=== PATIENT | male | born 1930 | race African-American/Black ===

== ENCOUNTER 2017-07-08 14:58 | Inpatient (IN) | payer OTHER ==
[~2017-07-08] VITALS: Ht 180.3 cm; Wt 84.1 kg
[2017-07-08 14:58] VITALS: Ht 180.3 cm; Wt 84.1 kg
[2017-07-08] MEDS ORDERED: SOD CHLORIDE 0.9% 500 ML IV STA (15:25)
[2017-07-08] MEDS ORDERED: ASPIRIN 81 MG TAB PO ONE (15:30)
[2017-07-08] MEDS ORDERED: TAMS0.4C2 PO (15:59)
[2017-07-08] MEDS ORDERED: ISOS30TA5 PO (16:00)
[2017-07-08 16:01] LABS: ABNORMAL IP MESSAGE 1; HEMATOCRIT 38.8 % (42.0-52.0); HEMOGLOBIN 13.2 g/dl (14.0-18.0); MEAN CORPUSCULAR HEMOGLOBIN 29.5 pg (29.0-33.0); MEAN CORPUSCULAR VOLUME 86.6 fl (82.0-101.0); MEAN PLATELET VOLUME 10.2 fl (7.4-10.4); PLATELET COUNT 144 10^3/UL (140-415); POSITIVE DIFF @See below; RED BLOOD COUNT 4.48 10^6/ul (4.70-6.10); RED CELL DISTRIBUTION WIDTH 15.4 % (11.5-14.5); WHITE BLOOD COUNT 17.3 10^3/ul (4.8-10.8)
[2017-07-08] MEDS ORDERED: AMLO2.5T78 PO (16:02)
[2017-07-08] MEDS ORDERED: LOSA100T7 PO (16:03)
[2017-07-08] MEDS ORDERED: DOXA2TAB PO (16:04)
[2017-07-08] MEDS ORDERED: PRAV80TA27 PO (16:04)
[2017-07-08] MEDS ORDERED: ASPI-664 PO (16:05)
[2017-07-08] MEDS ORDERED: SILO8CAP PO (16:09)
[2017-07-08 16:28] LABS: INR 1.04; PROTIME 13.6 Sec (12.2-14.2); PT RATIO 1.1
[2017-07-08 16:58] LABS: LYMPHOCYTES # 0.2 10^3/ul (0.8-2.9); METAMYELOCYTES %M 1 % (0-0); MONOCYTE # 0.3 10^3/ul (0.3-0.9); MONOCYTES % (M) 2 % (0-11)
--- NOTE | 2017-07-08 16:59 | RADRPT ---
PROCEDURE: XR Chest. CLINICAL INDICATION: Shortness of breath. TECHNIQUE: Single frontal view. COMPARISON: None. FINDINGS: There is a possible 0.5 cm nodule in the right lung apex. The lungs are otherwise clear. The heart is enlarged. There is calcification in the aorta consistent with atherosclerosis. There is no pleural effusion. There is no pneumothorax. IMPRESSION: 1. Cardiomegaly and atherosclerosis. 2. Possible nodule in the right lung apex. Correlation with CT scan should be considered. 3. Otherwise unremarkable study. RPTAT: QQ .Bravo Oviedo MD, MD Date Time Electronically viewed and signed by .Bravo Oviedo MD, MD on 07/08/2017 16:59 .R/
[2017-07-08 17:02] LABS: ALBUMIN 3.1 g/dl (3.3-4.9); ALBUMIN/GLOBULIN RATIO 0.86; BILIRUBIN,INDIRECT 0.8 mg/dl (0-1.1); BILIRUBIN,TOTAL 0.8 mg/dl (0.2-1.3); CALCIUM 8.6 mg/dl (8.4-10.2); CREATININE 2.18 mg/dl (0.61-1.24); POTASSIUM 3.8 mmol/L (3.5-5.1); TOTAL PROTEIN 6.7 g/dl (6.1-8.1)
[2017-07-08 18:51] LABS: TROPONIN-I 34.8 ng/ml (0.00-0.12)
[2017-07-08] MEDS ORDERED: ONDANSETRON 4 MG INJ IV PRN (19:30)
[2017-07-08] MEDS ORDERED: HYDROCODONE/APAP (5/325) TAB PO PRN (19:30)
[2017-07-08] MEDS ORDERED: ENOXAPARIN 100 MG/ML SYG SC SCH (19:30)
[2017-07-08] MEDS ORDERED: ONDANSETRON 4 MG TAB PO PRN (19:30)
[2017-07-08] MEDS ORDERED: CLOPIDOGREL 75 MG TAB PO ONE (19:30)
[2017-07-08] MEDS ORDERED: METOCLOPRAMIDE 10 MG INJ IV PRN (19:30)
[2017-07-08] MEDS ORDERED: ACETAMINOPHEN 650MG/20.3ML CUP PO PRN (19:30)
[2017-07-08 19:47] LABS: CHOL/HDL RATIO 2.6 RATIO
[2017-07-08] MEDS ORDERED: ATORVASTATIN 20 MG TAB PO SCH (21:00)
[2017-07-08] MEDS ORDERED: TAMSULOSIN HCL PO SCH (21:00)
[2017-07-08 21:29] VITALS: TEMP 98
[2017-07-08] MEDS: DOXAZOSIN 2 MG TAB PO SCH (22:09)
[2017-07-08] MEDS: ISOSORBIDE MONONITRATE(SR)30 MG TAB PO SCH (22:10)
--- NOTE | 2017-07-08 22:38 | ERA ---
ER Documentation Chief Complaint Date/Time DATE: 07/08/17 TIME: 22:27 Chief Complaint cough and sob starting this morning; no complaint of cp HPI 89-year-old man with history of hypertension presents short of breath beginning this morning when he woke up. He denies chest pain or palpitations, no recent travel, no fevers or chills, no vomiting or diarrhea. Patient denies dizziness or generalized weakness but states he feels short of breath at rest and when he attempts to walk around the house. states a week ago he had similar symptoms which lasted for part of the day and then resolve spontaneously. He has no history of irregular heartbeat. ROS All systems reviewed and are negative except as per history of present illness. Medications Home Meds Reported Medications Silodosin (Rapaflo) 8 Mg Capsule, 8 MG PO DAILY, CAP 07/08/17 Aspirin* (Aspirin* EC) 81 Mg Tablet.dr, 81 MG PO DAILY, TAB 07/08/17 Doxazosin Mesylate* (Doxazosin Mesylate*) 2 Mg Tablet, 1 MG PO HS, TAB 07/08/17 Pravastatin Sodium* (Pravastatin Sodium*) 80 Mg Tablet, 80 MG PO HS, TAB 07/08/17 Losartan Potassium* (Losartan Potassium*) 100 Mg Tablet, 100 MG PO DAILY, TAB 07/08/17 Amlodipine Besylate* (Amlodipine Besylate*) 2.5 Mg Tablet, 2.5 MG PO QAM, #30 TAB 07/08/17 Isosorbide Mononitrate* (Isosorbide Mononitrate*) 30 Mg Tab.er.24h, 30 MG PO BID , TAB 07/08/17 Tamsulosin Hcl* (Tamsulosin Hcl*) Unknown Strength Cap.er.24h, 1 TAB PO HS, CAP 07/08/17 Allergies Allergies: Coded Allergies: No Known Allergy (Unverified , 07/08/17) PMhx/Soc Hypertension, prostate carcinoma, prediabetes Medical and Surgical Hx: pt denies Surgical Hx History of Surgery: No Anesthesia Reaction: No Hx Neurological Disorder: No Hx Respiratory Disorders: No Hx Cardiac Disorders: Yes (htn, cholesterol) Hx Psychiatric Problems: No Hx Miscellaneous Medical Probl: Yes (prostate) Hx Alcohol Use: No Hx Substance Use: No Smoking Status: Former smoker FmHx Family History: No diabetes Physical Exam Vitals Vital Signs Date Time Temp Pulse Resp B/P Pulse Ox O2 Delivery O2 Flow Rate FiO2 07/08/17 21:29 98.0 67 18 119/70 Room Air 07/08/17 19:29 98.4 77 20 117/74 100 Nasal Cannula 2.0 07/08/17 15:56 Nasal Cannula 2.0 07/08/17 15:15 77 20 114/75 100 Nasal Cannula 2.0 07/08/17 14:58 98.2 95 20 95/59 96 Physical Exam GENERAL: Well-developed, well-nourished, well-hydrated, in no apparent distress , looks nontoxic in appearance HEENT: Moist mucous membranes, pink conjunctiva, no cervical spine tenderness or step-off deformities, no goiter, no jaundice or icterus, extraocular movements intact without pain. No submandibular induration, and no pharyngeal erythema NEURO: Alert and oriented 3, cranial nerves II through XII intact bilaterally, pupils equal round reactive to light, no focal deficits or facial asymmetry, sensation intact distally Strength 5/5 in upper and lower extremities bilaterally CARDIAC: Irregular pulse, no murmurs rubs or gallop LUNGS: Clear bilaterally no wheezing crackles or stridor ABDOMEN: Soft nontender, no guarding, no rigidity, no rebound, no psoas sign no obturator sign. Normoactive bowel sounds SKIN: Warm and dry to touch, no abrasions, contusions, or hematomas, no lacerations, no ecchymosis, no target lesions, and without ulcers EXTREMITIES: No clubbing cyanosis or edema, calves are bilaterally symmetrical, no Homans sign, no popliteal cord sign. Distal pulses equal and bilateral PSYCH: Normal affect without agitation or irritability Result Diagram: 07/08/17 1555 07/08/17 1756 Results 24 hrs Laboratory Tests Test 07/08/17 15:55 07/08/17 17:59 07/08/17 18:00 White Blood Count 17.310^3/ul Red Blood Count 4.4810^6/ul Hemoglobin 13.2g/dl Hematocrit 38.8% Mean Corpuscular Volume 86.6fl Mean Corpuscular Hemoglobin 29.5pg Mean Corpuscular Hemoglobin Concent 34.0g/dl Red Cell Distribution Width 15.4% Platelet Count 90859^3/UL Mean Platelet Volume 10.2fl Neutrophils % % Segmented Neutrophils % (Manual) 68% Band Neutrophils % (Manual) 28% Lymphocytes % % Lymphocytes % (Manual) 1% Monocytes % % Monocytes % (Manual) 2% Eosinophils % % Basophils % % Metamyelocytes % (manual) 1% Nucleated Red Blood Cells % 0.0/100WBC Neutrophils # (Manual) 12.610^3/ul Band Neutrophils # 4.810^3/ul Absolute Lymphocytes (Manual) 0.110^3/ul Lymphocytes # 0.210^3/ul Monocytes # 0.310^3/ul Absolute Monocytes (Manual) 0.310^3/ul Eosinophils # 10^3/ul Basophils # 10^3/ul Metamyelocytes # 0.110^3/ul Nucleated Red Blood Cells # 10^3/ul Prothrombin Time 13.6Sec Prothrombin Time Ratio 1.1 INR International Normalized Ratio 1.04 Sodium Level 136mmol/L Potassium Level 3.8mmol/L Chloride Level 104mmol/L Carbon Dioxide Level 17mmol/L Anion Gap 19 Blood Urea Nitrogen 22mg/dl Creatinine 2.18mg/dl Glucose Level 123mg/dl Calcium Level 8.6mg/dl Total Bilirubin 0.8mg/dl Direct Bilirubin 0.00mg/dl Indirect Bilirubin 0.8mg/dl Aspartate Amino Transf (AST/SGOT) 125IU/L Alanine Aminotransferase (ALT/SGPT) 33IU/L Alkaline Phosphatase 93IU/L Troponin I 34.800ng/ml Total Protein 6.7g/dl Albumin 3.1g/dl Globulin 3.60g/dl Albumin/Globulin Ratio 0.86 Lipase 27U/L Hemoglobin A1c 6.4% Triglycerides Level 102mg/dl Cholesterol Level 185mg/dl LDL Cholesterol, Calculated 95mg/dl HDL Cholesterol 70mg/dl Cholesterol/HDL Ratio 2.6RATIO Current Medications Medications (Trade) Dose Ordered Sig/Giacomo Route PRN Reason Start Time Stop Time Status Last Admin Dose Admin Sodium Chloride (NS) 500 ml @ 500 mls/hr Q1H STAT IV 07/08/17 15:25 07/08/17 16:24 DC 07/08/17 15:25 Aspirin (Aspirin) 324 mg ONCE ONCE PO 07/08/17 15:30 07/08/17 15:31 DC 07/08/17 15:30 Clopidogrel Bisulfate (plaVIX) 300 mg ONCE ONCE PO 07/08/17 19:30 07/08/17 19:31 DC 07/08/17 19:19 Enoxaparin Sodium (Lovenox) 84 mg ONCE SC 07/08/17 19:30 07/08/17 20:00 DC 07/08/17 19:49 Ondansetron HCl (Zofran Tab) 4 mg Q6H PRN PO NAUSEA AND/OR VOMITING 07/08/17 19:30 UNV Ondansetron HCl (Zofran Inj) 4 mg Q6H PRN IV NAUSEA AND/OR VOMITING 07/08/17 19:30 Metoclopramide HCl (Reglan) 10 mg Q6H PRN IV NAUSEA AND/OR VOMITING 07/08/17 19:30 Acetaminophen (Tylenol Liquid) 650 mg Q6H PRN PO PAIN LEVEL 1-3 OR FEVER 07/08/17 19:30 Acetaminophen/ Hydrocodone Bitart ([place] (5/325)) 1 tab Q6H PRN PO PAIN LEVEL 4-6 07/08/17 19:30 Amlodipine Besylate (Norvasc) 2.5 mg QAM PO 07/09/17 09:00 UNV Aspirin (Halfprin) 81 mg DAILY PO 07/09/17 09:00 UNV Doxazosin Mesylate (Cardura) 1 mg HS PO 07/08/17 21:00 07/08/17 22:09 Isosorbide Mononitrate (Imdur) 30 mg BID PO 07/08/17 21:00 07/08/17 22:10 Losartan Potassium (Cozaar) 100 mg DAILY PO 07/09/17 09:00 UNV Atorvastatin Calcium (Lipitor) 20 mg DAILY@21 PO 07/08/17 21:00 07/08/17 22:10 Miscellaneous Information 8 mg DAILY PO 07/09/17 09:00 UNV Miscellaneous Information 1 tab HS PO 07/08/17 21:00 UNV Procedures/MDM IV line was established patient was placed on flower pot press operator rhythm strip revealed a narrow complex irregular rhythm at about 80 bpm. Patient was afebrile. I administered 500 cc normal saline intravenously and aspirin 324 mg p.o. for cardio protective measures. EKG #1 performed, read by me revealed an atrial fibrillation rate controlled at 88 bpm, normal axis, narrow QRS complex, no concerning ST elevations or depressions noted. One AP view of the chest performed, read by me reveals no acute infiltrates, normal mediastinum, sharp costophrenic and cardiac borders, no air under the diaphragm. Otherwise unremarkable chest x-ray. CBC revealed a leukocytosis of 17, electrolytes revealed dehydration and acute kidney injury with a BUN/creatinine of 22/2.2, liver function tests were normal. Troponin result was delayed but for new onset symptomatic atrial fibrillation I recommended admission and transfer to his [facility]. The accepting physician agreed verbally but plan was to wait for troponin level. Troponin was positive at 34. Transfer was canceled and authorization was given to admit here. Patient continues to deny and has had no complaints of chest pain or pressure. EKG #2 performed, read by me reveals an atrial fibrillation rate controlled at 83 bpm, normal axis, narrow QRS complex, no concerning ST elevations or depressions noted. I ordered clopidogrel 300 mg p.o. for cardioprotective measures. I obtain emergent consultation with on-call piano stringer who recommended Lovenox subcutaneous injection. He agreed to consult the patient, at this time we have no indication for emergent PCI. Cardiac Critical Care: Time: 37 minutes, this was time separate from other billable procedures Treatments/Evaluations: Close monitoring for dangerous arrhythmia and cardiovascular collapse, while treating with advance cardiac medications and techniques. Patient will be admitted to intensive care unit for continued medical management cardiology consultation. Departure Diagnosis: Primary Impression: Non-STEMI (non-ST elevated myocardial infarction) Additional Impressions: Shortness of breath Leukocytosis Qualified Code: D72.820 - Lymphocytosis Atrial fibrillation, new onset Acute kidney injury Condition: Serious NELLY KO MD Jul 08, 2017 22:38
--- NOTE | 2017-07-08 23:26 | HP ---
Date/Time of Note Date/Time of Note DATE: 07/08/17 TIME: 23:26 Assessment/Plan VTE Prophylaxis VTE Prophylaxis Intervention: heparin Assessment/Plan Assessment/Plan IMPRESSION: 1. Fyr-SL-[id number] myocardial infarction with peaking troponins at this time and downtrending CK-MB in the setting of worsening [id number] renal failure, and no current chest pain. 2. Atrial fibrillation. 3. Episodes of bradycardia. 4. Hypertension. 5. Renal failure, acute on chronic. 6. Dyslipidemia. 7. Anemia. 8. Thrombocytopenia. 9. Leukocytosis. RECOMMENDATIONS: HPI/ROS Admit Date/Time Admit Date/Time 07/08/17 Hx of Present Illness Mr. Martinez is a pleasant 89-year- old male with history of hypertension, BPH, chronic kidney disease, dyslipidemia, former tobacco and said he quit times greater than 30 years, who initially awoke with complaints of shortness of breath. Denied chest pain. The patient states that he had been noticing dyspnea on exertion for multiple weeks. ROS 12 point review if systems was done and pertinent findings are as noted. PMH/Family/Social Social History Smoking Status: Former smoker Exam/Review of Systems Vital Signs Vitals VS - Last 72 Hours, by Label Date Time Temp Pulse Resp B/P Pulse Ox O2 Delivery O2 Flow Rate FiO2 07/08/17 23:14 62 16 135/62 99 Nasal Cannula 2.0 07/08/17 21:29 98.0 67 18 119/70 Room Air 07/08/17 19:29 98.4 77 20 117/74 100 Nasal Cannula 2.0 07/08/17 15:56 Nasal Cannula 2.0 07/08/17 15:15 77 20 114/75 100 Nasal Cannula 2.0 07/08/17 14:58 98.2 95 20 95/59 96 Vital Signs Date Time Temp Pulse Resp B/P Pulse Ox O2 Delivery O2 Flow Rate FiO2 07/08/17 23:14 62 16 135/62 99 Nasal Cannula 2.0 07/08/17 21:29 98.0 Exam Exam .GENERAL: Patient is alert, oriented x 3, in no apparent distress; does not appear acutely or chronically ill. Patient was sleeping comfortably but aroused easily and is able to follow commands. HEENT: Oropharynx is clear. There is no carotid bruit, no masses. Patient's pupils are equal, round and reactive to light bilaterally. Extraocular motions are intact. There is no scleral icterus. There is no facial asymmetry. NECK: Supple. LUNGS: Clear to auscultation bilaterally with good air entry. No Wheezes or crackles. HEART: S1, S2. No murmur, gallops or rubs. Regular rate and rhythm. ABDOMEN: Soft, nontender. Normoactive bowel sounds. There are no stigmata of chronic liver disease. BACK: no costovertebral angle tenderness. GENITOURINARY: Deferred. EXTREMITIES: No edema. There is no cyanosis, clubbing. There are 2+ pulses bilaterally distally. NEUROLOGIC: The patient has no lateralizing signs. Cranial nerves II-XII are intact. SKIN: Otherwise, unremarkable. Labs Result Diagram: 07/08/17 9058 07/08/17 5822 Medications Medications Current Medications Ondansetron HCl (Zofran Tab) 4 mg Q6H PRN PO NAUSEA AND/OR VOMITING; Start at 19:30; Status UNV Ondansetron HCl (Zofran Inj) 4 mg Q6H PRN IV NAUSEA AND/OR VOMITING; Start at 19:30 Metoclopramide HCl (Reglan) 10 mg Q6H PRN IV NAUSEA AND/OR VOMITING; Start at 19:30 Acetaminophen (Tylenol Liquid) 650 mg Q6H PRN PO PAIN LEVEL 1-3 OR FEVER; Start 07/08/17 at 19:30 Acetaminophen/ Hydrocodone Bitart ([place] (5/325)) 1 tab Q6H PRN PO PAIN LEVEL 4 -6; Start 07/08/17 at 19:30 Amlodipine Besylate (Norvasc) 2.5 mg QAM PO ; Start 07/09/17 at 09:00; Status UNV Aspirin (Halfprin) 81 mg DAILY PO ; Start 07/09/17 at 09:00; Status UNV Doxazosin Mesylate (Cardura) 1 mg HS PO Last administered on 07/08/17 22:09; Admin Dose 1 MG; Start 07/08/17 at 21:00 Isosorbide Mononitrate (Imdur) 30 mg BID PO Last administered on 07/08/17 22: 10; Admin Dose 30 MG; Start 07/08/17 at 21:00 Losartan Potassium (Cozaar) 100 mg DAILY PO ; Start 07/09/17 at 09:00; Status UNV Atorvastatin Calcium (Lipitor) 20 mg DAILY@21 PO Last administered on t 22:10; Admin Dose 20 MG; Start 07/08/17 at 21:00 Miscellaneous Information 8 mg DAILY PO ; Start 07/09/17 at 09:00; Status UNV Miscellaneous Information 1 tab HS PO ; Start 07/08/17 at 21:00; Status UNV Procedures Procedures Laboratory Tests Test 07/08/17 15:55 07/08/17 17:59 07/08/17 18:00 White Blood Count 17.310^3/ul Red Blood Count 4.4810^6/ul Hemoglobin 13.2g/dl Hematocrit 38.8% Mean Corpuscular Volume 86.6fl Mean Corpuscular Hemoglobin 29.5pg Mean Corpuscular Hemoglobin Concent 34.0g/dl Red Cell Distribution Width 15.4% Platelet Count 73036^3/UL Mean Platelet Volume 10.2fl Neutrophils % % Segmented Neutrophils % (Manual) 68% Band Neutrophils % (Manual) 28% Lymphocytes % % Lymphocytes % (Manual) 1% Monocytes % % Monocytes % (Manual) 2% Eosinophils % % Basophils % % Metamyelocytes % (manual) 1% Nucleated Red Blood Cells % 0.0/100WBC Neutrophils # (Manual) 12.610^3/ul Band Neutrophils # 4.810^3/ul Absolute Lymphocytes (Manual) 0.110^3/ul Lymphocytes # 0.210^3/ul Monocytes # 0.310^3/ul Absolute Monocytes (Manual) 0.310^3/ul Eosinophils # 10^3/ul Basophils # 10^3/ul Metamyelocytes # 0.110^3/ul Nucleated Red Blood Cells # 10^3/ul Prothrombin Time 13.6Sec Prothrombin Time Ratio 1.1 INR International Normalized Ratio 1.04 Sodium Level 136mmol/L Potassium Level 3.8mmol/L Chloride Level 104mmol/L Carbon Dioxide Level 17mmol/L Anion Gap 19 Blood Urea Nitrogen 22mg/dl Creatinine 2.18mg/dl Glucose Level 123mg/dl Calcium Level 8.6mg/dl Total Bilirubin 0.8mg/dl Direct Bilirubin 0.00mg/dl Indirect Bilirubin 0.8mg/dl Aspartate Amino Transf (AST/SGOT) 125IU/L Alanine Aminotransferase (ALT/SGPT) 33IU/L Alkaline Phosphatase 93IU/L Troponin I 34.800ng/ml Total Protein 6.7g/dl Albumin 3.1g/dl Globulin 3.60g/dl Albumin/Globulin Ratio 0.86 Lipase 27U/L Hemoglobin A1c 6.4% Triglycerides Level 102mg/dl Cholesterol Level 185mg/dl LDL Cholesterol, Calculated 95mg/dl HDL Cholesterol 70mg/dl Cholesterol/HDL Ratio 2.6RATIO Current Medications Medications (Trade) Dose Ordered Sig/Giacomo Route PRN Reason Start Time Stop Time Status Last Admin Dose Admin Sodium Chloride (NS) 500 ml @ 500 mls/hr Q1H STAT IV 07/08/17 15:25 07/08/17 16:24 DC 07/08/17 15:25 500 MLS/HR Aspirin (Aspirin) 324 mg ONCE ONCE PO 07/08/17 15:30 07/08/17 15:31 DC 07/08/17 15:30 324 MG Clopidogrel Bisulfate (plaVIX) 300 mg ONCE ONCE PO 07/08/17 19:30 07/08/17 19:31 DC 07/08/17 19:19 300 MG Enoxaparin Sodium (Lovenox) 84 mg ONCE SC 07/08/17 19:30 07/08/17 20:00 DC 07/08/17 19:49 84 MG Ondansetron HCl (Zofran Tab) 4 mg Q6H PRN PO NAUSEA AND/OR VOMITING 07/08/17 19:30 UNV Ondansetron HCl (Zofran Inj) 4 mg Q6H PRN IV NAUSEA AND/OR VOMITING 07/08/17 19:30 Metoclopramide HCl (Reglan) 10 mg Q6H PRN IV NAUSEA AND/OR VOMITING 07/08/17 19:30 Acetaminophen (Tylenol Liquid) 650 mg Q6H PRN PO PAIN LEVEL 1-3 OR FEVER 07/08/17 19:30 Acetaminophen/ Hydrocodone Bitart ([place]p (5/325)) 1 tab Q6H PRN PO PAIN LEVEL 4-6 07/08/17 19:30 Amlodipine Besylate (Norvasc) 2.5 mg QAM PO 07/09/17 09:00 UNV Aspirin (Halfprin) 81 mg DAILY PO 07/09/17 09:00 UNV Doxazosin Mesylate (Cardura) 1 mg HS PO 07/08/17 21:00 07/08/17 22:09 1 MG Isosorbide Mononitrate (Imdur) 30 mg BID PO 07/08/17 21:00 07/08/17 22:10 30 MG Losartan Potassium (Cozaar) 100 mg DAILY PO 07/09/17 09:00 UNV Atorvastatin Calcium (Lipitor) 20 mg DAILY@21 PO 07/08/17 21:00 07/08/17 22:10 20 MG Miscellaneous Information 8 mg DAILY PO 07/09/17 09:00 UNV Miscellaneous Information 1 tab HS PO 07/08/17 21:00 UNV MICHAEL SHEIKH Jul 08, 2017 23:26
[2017-07-08] MEDS ORDERED: HEPARIN 1000 UNITS/ML 10 ML INJ IV PRN (23:30)
[2017-07-08] MEDS ORDERED: HEPARIN 25000 UNITS/250 ML 250 ML IV SCH (23:30)
[2017-07-09] VITALS (23 sets, daily range): BP systolic 98–148; BP diastolic 49–95; PULSE 41–82; RESP 13–25
[2017-07-09] MEDS: SOD CHLORIDE 0.9% 1,000 ML IV SCH ×3 (00:37→14:16)
[2017-07-09 00:44] LABS: TROPONIN-I 43.7 ng/ml (0.00-0.12)
[2017-07-09 06:55] LABS: BASOPHIL # 0.1 10^3/ul (0.0-0.1); BASOPHILS % 0.3 % (0.0-2.0); EOSINOPHILS % 0.1 % (0.0-7.0); HEMOGLOBIN 11.6 g/dl (14.0-18.0); LYMPHOCYTES # 1.7 10^3/ul (0.8-2.9); LYMPHOCYTES % 8.9 % (15.0-51.0); MEAN CORPUSCULAR HEMOGLOBIN 29.1 pg (29.0-33.0); MEAN CORPUSCULAR HGB CONC 34.1 g/dl (32.0-37.0); MEAN CORPUSCULAR VOLUME 85.2 fl (82.0-101.0); MEAN PLATELET VOLUME 11.3 fl (7.4-10.4); MONOCYTES % 5.1 % (0.0-11.0); NEUTROPHILS % 82.3 % (39.0-77.0); PLATELET COUNT 131 10^3/UL (140-415); POSITIVE DIFF @See below; RED BLOOD COUNT 3.99 10^6/ul (4.70-6.10); RED CELL DISTRIBUTION WIDTH 15.5 % (11.5-14.5); WHITE BLOOD COUNT 19.3 10^3/ul (4.8-10.8)
[2017-07-09 07:07] LABS: INR 1.29; PROTIME 16.2 Sec (12.2-14.2); PT RATIO 1.3
[2017-07-09 07:08] LABS: PARTIAL THROMBOPLASTIN TIME 46.9 Sec (25.0-35.0)
[2017-07-09 07:47] LABS: CALCIUM 8.3 mg/dl (8.4-10.2); CHOL/HDL RATIO 2.3 RATIO; CREATININE 2.41 mg/dl (0.61-1.24); MAGNESIUM 1.7 mg/dl (1.7-2.5); PHOSPHORUS 3.6 mg/dl (2.5-4.9); POTASSIUM 4.2 mmol/L (3.5-5.1); TROPONIN-I 44.7 ng/ml (0.00-0.12)
[2017-07-09] MEDS ORDERED: HEPARIN 1000 UNITS/ML 10 ML INJ IV PRN (09:00)
[2017-07-09] MEDS: ISOSORBIDE MONONITRATE(SR)30 MG TAB PO SCH (09:00)
[2017-07-09] MEDS ORDERED: LOSARTAN 50 MG TAB PO SCH (09:00)
[2017-07-09] MEDS ORDERED: HEPARIN 25000 UNITS/250 ML 250 ML IV SCH (09:00)
--- NOTE | 2017-07-09 11:06 | CONS ---
DATE OF ADMISSION: 07/08/2017 DATE OF CONSULTATION: 07/09/2017 REASON FOR CONSULTATION: Obp-SX-[id number] myocardial infarction. REFERRING PHYSICIAN: Dr. Patel from the hospitalist service. HISTORY OF PRESENT ILLNESS: Mr. Martinez is a pleasant 89-year- old male with history of hypertension, BPH, chronic kidney disease, dyslipidemia, former tobacco and said he quit times greater than 30 years, who initially awoke with complaints of shortness of breath. Denied chest pain. The patient states that he had been noticing dyspnea on exertion for multiple weeks. The patient subsequently presented to the emergency department here at [facility], and upon arrival, temperature 98.2, blood pressure 95/59, pulse 95, respiratory rate 20, satting 96 percent. Patient's labs revealed a sodium of 136, potassium 3.8, creatinine 2.1, BUN 22. Troponin 34.8. AST 125, ALT 33. LDL 95, HDL 70. Lipase 27. INR 1.0. The patient underwent a chest x-ray, revealed cardiomegaly, atherosclerosis, possible nodules in the right lung apex. Patient's electrocardiogram revealed atrial fibrillation at a rate of 88 with normal axis, intervals, and lateral ST depressions, anteroseptal Q's; in addition, the patient had inferior Q's. The patient subsequently treated with aspirin, Plavix load of 300 and Lovenox 84 mg subcu x1. The patient, thereafter, has been admitted to the ICU, and since admitted to the ICU, patient denies chest pain, and states shortness of breath has improved. Patient's troponin did trend up to 34.8, went to 42.7 and then 44.7 this morning, with CK-MB that went from 141, down to 121. Patient's creatinine has worsened from 2.18 to 2.41. PAST MEDICAL HISTORY: As above in HPI. MEDICATION: Currently in the hospital: 1. Flomax 0.4 mg daily. 2. Norvasc 2.5 mg daily. 3. Aspirin 81 mg daily. 4. Cardura 1 mg at bedtime. 5. Imdur 30 mg daily. 6. Atorvastatin 20 mg daily. 7. Zofran p.r.n. 8. Reglan p.r.n. 9. Tylenol p.r.n. 10. [place] p.r.n. ALLERGIES: NO KNOWN DRUG ALLERGIES. SOCIAL HISTORY: Former tobacco, quit x30 years. Rare EtOH. No illicit drug use. FAMILY HISTORY: No history of sudden cardiac or early CAD. REVIEW OF SYSTEMS: As above in HPI. CONSTITUTIONAL: No fevers, chills. RESPIRATORY: Shortness of breath. Currently improved. GASTROINTESTINAL: No vomiting. GENITOURINARY: No hematuria. MUSCULOSKELETAL: Degenerative joint disease. GENITOURINARY: Additionally, BPH. CARDIOVASCULAR: NSTEMI. PHYSICAL EXAMINATION: VITAL SIGNS: Temperature of 97.5, blood pressure 109/55, pulse 52, respiratory rate 20, satting 99 percent on 2 L. GENERAL: The patient is alert, awake, no acute distress. NECK: JVP approximately 9 cm of water. CHEST: Fair air movement throughout, mildly decreased breath sounds at the bases bilaterally. HEART: Bradycardic, regular rhythm. Normal S1, S2. 1/6 systolic murmur. Nondisplaced PMI. ABDOMEN: Positive bowel sounds. Soft. EXTREMITIES: No pitting edema. 1+ pulses, bilateral posterior tibial. LABORATORY: Most recently from today: Sodium of 146, potassium 4.2, creatinine 2.41, BUN of 29. Hemoglobin A1c of 6.4. Troponin 44.7, CK-MB 121, down from 141. LDL of 76, HDL of 69. White blood cell count 19.3, hemoglobin 11.6, platelet count of 131. IMAGING STUDIES: 1. Chest x-ray from the th revealing cardiomegaly and atherosclerosis, possible nodules in the right lung apex. 2. ECG from this morning reveals atrial fibrillation at a rate of 51 with anterior and lateral T-wave inversions. IMPRESSION: 1. Vqm-TY-[id number] myocardial infarction with peaking troponins at this time and downtrending CK-MB in the setting of worsening [id number]-gh-[id number] renal failure, and no current chest pain. 2. Atrial fibrillation. 3. Episodes of bradycardia. 4. Hypertension. 5. Renal failure, acute on chronic. 6. Dyslipidemia. 7. Anemia. 8. Thrombocytopenia. 9. Leukocytosis. RECOMMENDATIONS: 1. At this time, would maintain patient in telemetry on intensive care unit monitoring, follow rhythm and rate control closely. 2. We will continue the patient's dual-antiplatelet therapy for treatment of hzt-TJ-[id number] myocardial infarction, has been started with aspirin and Plavix, some baby aspirin 81 mg, Plavix 75 mg. 3. We will continue systemic anticoagulation at this time and we will continue Lovenox 1 mcg/kg subcu daily or to consider intravenous heparin if renal function continues to worsen. 4. Continue to trend the patient's cardiac enzymes to assess for any significant ongoing cardiac damage. 5. Check a 2D echo to further assess patient's ejection fraction, wall motion and major abnormalities. 6. Follow patient's fasting lipid panel, and place patient on high-dose statin therapy for properties in the setting of acute myocardial infarction. 7. Continue patient's Imdur. We will change it to daily dosing, as patient will get tachyphylaxis to Imdur if dosed b.i.d. 8. Patient should have a renal consultation, optimization of renal function in anticipation of left heart catheterization during this index admission, which at this time, has been potentially scheduled for Wednesday at 9 a.m. Thank you for allowing to take part in the care of this patient. I will continue to follow very closely with you. Further recommendations will be made as patient progresses through inpatient hospital course. Dictated By: Jorge Kiran /catracho/ken /Document#: [id number] ; Dr. Patel
--- NOTE | 2017-07-09 12:21 | RADRPT ---
Echocardiogram Report Patient Name: LILLI CHANDRA Gender: Male Date: 08-Jun-1927 Study Date: 09-Jul-2017 Dry Kiln Burner: Susy Garces RDCS Location: 118 Ref. Physician: HOA CUELLAR Quality: Good Procedures: Transthoracic echocardiogram with complete 2D, M-Mode, and doppler examination. Indications: NSTEMI. 2D/M Mode Doppler Measurement Value Normal Ranges Measurement Value Normal Ranges LVIDd 2D 4.9 3.5 - 5.6 cm LOI Vmax 1.2 cm2 LVIDs 2D 3.3 2.1 - 4.1 cm LOI VTI 1.3 cm2 FS 2D 32.3 % AV Mean Elvin 1.6 m/sec LVPWd 2D 1.4 0.6 - 1.1 cm AV Mean PG 11.0 mmHg IVSd 2D 1.5 0.6 - 1.1 cm AV Peak Elvin 2.3 m/sec IVS/LVPW 2D 1.1 AV Peak PG 20.0 mmHg AoR Diam 2D 3.2 2.0 - 3.7 cm AV VTI 50.6 cm LA/Ao 2D 1 0 - 1 AI Peak PG 36.0 mmHg EDV 2D 115.0 cm3 AI Peak Elvin 3.0 m/sec ESV 2D 35.6 cm3 AI PHT 953.0 msec LA Dimen 2D 4.3 2.3 - 4.0 cm LVOT Mean Elvin 0.5 m/sec LVOT Diam 2.1 cm LVOT Mean PG 1.0 mmHg LVOT Area 3.5 cm2 LVOT Peak Elvin 0.8 m/sec LVOT Peak PG 2.0 mmHg LVOT VTI 18.3 cm MV E Peak Elvin 1.0 m/sec MV Decel Time 211 msec TR Peak Elvin 3.3 m/sec TR Peak PG 45.0 mmHg RVSP 60.0 mmHg Findings Left Ventricle: Lower limits of normal systolic function. Normal left ventricular cavity size. Moderate concentric left ventricular hypertrophy. Moderate left ventricular systolic dysfunction. Ejection fraction is visually estimated at 3540 %. Tissue Doppler/Mitral Doppler indices are consistent with restrictive physiology with markedly elevated left atrial pressure (Stage IIIIV diastolic dysfunction). These segments of the LV are hypokinetic apex, apical septum, anteroseptum mid segment and apical anterior segment. Right Ventricle: Normal right ventricular size. Normal right ventricular systolic function. Left Atrium: There is mild enlargement of left atrium. Right Atrium: The right atrium is normal in size. Mitral Valve: Mitral valve leaflets appear mildly thickened. Mild mitral annular calcification. Trace mitral regurgitation. Aortic Valve: Mild to moderate aortic stenosis. Aortic valve Max velocity 2.26 m/sec. Max PG 20.00 mmHg. Mean PG 11.00 mmHg. Aortic valve area 1.20 cm2. Mild aortic valve regurgitation. Tricuspid Valve: Normal appearance of the tricuspid valve. Estimated peak PA systolic pressure 60 mmHg. There is mild to moderate tricuspid regurgitation. Pulmonic Valve: Normal pulmonic valve appearance. Pericardium: Normal pericardium with no significant pericardial effusion. Aorta: Normal aortic root. IVC: Dilated IVC without respiratory collapse consistent with elevated right atrial pressure. Conclusions 1.Lower limits of normal systolic function. Normal left ventricular cavity size. Moderate concentric left ventricular hypertrophy. Moderate left ventricular systolic dysfunction. Ejection fraction is visually estimated at 35-40 %. Tissue Doppler/Mitral Doppler indices are consistent with restrictive physiology with markedly elevated left atrial pressure (Stage III-IV diastolic dysfunction). These segments of the LV are hypokinetic apex. , apical septum., anteroseptum mid segment and apical anterior segment. 2.There is mild enlargement of left atrium. 3.Mitral valve leaflets appear mildly thickened. Mild mitral annular calcification. Trace mitral regurgitation. 4.Normal appearance of the tricuspid valve. Estimated peak PA systolic pressure 60 mmHg. There is mild to moderate tricuspid regurgitation. 5.Normal pulmonic valve appearance. 6.Mild to moderate aortic stenosis. Aortic valve Max velocity 2.26 m/sec. Max PG 20.00 mmHg. Mean PG 11.00 mmHg. Aortic valve area 1.20 cm2. Mild aortic valve regurgitation. Electronically Signed By: Cecil Alex 09-Jul-2017 12:20:51 -0700 Patient Name: LILLI CHANDRA Study Date: 09-Jul-[id number]
[2017-07-09] MEDS: AMLODIPINE 2.5 MG TAB PO SCH (12:37)
[2017-07-09] MEDS: ASPIRIN (EC) 81 MG TAB PO SCH (12:37)
--- NOTE | 2017-07-09 13:40 | PN ---
Date/Time of Note Date/Time of Note DATE: 07/09/17 TIME: 13:26 Assessment/Plan VTE Prophylaxis VTE Prophylaxis Intervention: LMWH Lines/Catheters [facility] Peripheral IV Urinary Cath still in place: No Assessment/Plan Assessment/Plan 1. Acute NSTEMI, on aspirin, plavix, lipitor, therapeutic lovenox, follow up with cardiology 2. Congestive heart failure, acute, systolic with LVEF 35-40%, on losartan, not on beta reuben due to runs of bradycardia 3. Atrial fibrillation, controlled rate with episodes of bradycardia, on lovenox 3. Episodes of bradycardia, hold beta reuben 4. Hypertension, controlled 5. Renal failure, acute on chronic, follow up with BMP avoid nephrotoxic agents , nephrology consult for preparation of LHC 6. Dyslipidemia, on lipitor 7. Anemia, normocytic, mild 8. Thrombocytopenia. mild, follow up with CBC 9. Reviewed H&P, Dr. Horton's note, and CXR/echocardiography, talked with patient and staff. Critical care time 45 minutes Subjective 24 Hr Interval Summary Free Text/Dictation less shortness of breath today. No chest pain Exam/Review of Systems Vital Signs Vitals Vital Signs Date Time Temp Pulse Resp B/P Pulse Ox O2 Delivery O2 Flow Rate FiO2 07/09/17 11:00 58 17 116/53 100 Nasal Cannula 2.0 07/09/17 08:00 97.5 Intake and Output 07/08/17 07/08/17 07/09/17 15:00 23:00 07:00 Intake Total 450 ml Output Total 450 ml Balance 0 ml Exam Constitutional: alert, oriented, well developed Psych: nl mood/affect, no complaints Head: atraumatic, normocephalic Eyes: EOMI, PERRL, nl conjunctiva, nl lids, nl sclera ENMT: mucosa pink and moist, nl external ears & nose, nl lips & teeth, nl nasal mucosa & septum Neck: non-tender, supple Respiratory: clear to auscultation, normal air movement, No congested cough, No crackles/rales, No diminished breath sounds, No intercostal retraction, No labored breathing, No other, No respirations, No tactile fremitus, No wheezing Cardiovascular: irregular rhythm, No S3, No S4, No bruits, No diastolic murmur, No gallop, No murmurs/extra sounds, No regular rate and rhythm, No rub, No systolic murmur Gastrointestinal: nl liver, spleen, non-tender, soft, No ascites, No bowel sounds, No distended, No firm, No hepatomegaly, No mass , No other, No rebound or guarding, No splenomegaly, No surgical scars, No tender Musculoskeletal: nl extremities to inspection Extremities: normal pulses, No calf tenderness, No clubbing, No cyanosis, No edema, No other, No palpable cord, No pitting pedal edema, No tenderness Neurological: TRENCH PIPE LAYER II-XII intact, nl mental status, nl speech, nl strength Skin: nl turgor Lymph: nl lymph nodes Results Result Diagram: 07/09/17 0530 07/09/17 0530 Results 24 hrs Laboratory Tests Test 07/08/17 15:55 07/08/17 17:59 07/08/17 18:00 07/09/17 00:00 White Blood Count 17.3 H Red Blood Count 4.48 L Hemoglobin 13.2 L Hematocrit 38.8 L Mean Corpuscular Volume 86.6 Mean Corpuscular Hemoglobin 29.5 Mean Corpuscular Hemoglobin Concent 34.0 Red Cell Distribution Width 15.4 H Platelet Count 144 Mean Platelet Volume 10.2 Neutrophils % Segmented Neutrophils % (Manual) 68 Band Neutrophils % (Manual) 28 H Lymphocytes % Lymphocytes % (Manual) 1 L Monocytes % Monocytes % (Manual) 2 Eosinophils % Basophils % Metamyelocytes % (manual) 1 H Nucleated Red Blood Cells % 0.0 Neutrophils # (Manual) 12.6 H Band Neutrophils # 4.8 H Absolute Lymphocytes (Manual) 0.1 L Lymphocytes # 0.2 L Monocytes # 0.3 Absolute Monocytes (Manual) 0.3 Eosinophils # Basophils # Metamyelocytes # 0.1 H Nucleated Red Blood Cells # Prothrombin Time 13.6 Prothrombin Time Ratio 1.1 INR International Normalized Ratio 1.04 Sodium Level 136 Potassium Level 3.8 Chloride Level 104 Carbon Dioxide Level 17 L Anion Gap 19 H Blood Urea Nitrogen 22 H Creatinine 2.18 H Glucose Level 123 Calcium Level 8.6 Total Bilirubin 0.8 Direct Bilirubin 0.00 Indirect Bilirubin 0.8 Aspartate Amino Transf (AST/SGOT) 125 H Alanine Aminotransferase (ALT/SGPT) 33 Alkaline Phosphatase 93 Troponin I 34.800 *H 43.700 *H Total Protein 6.7 Albumin 3.1 L Globulin 3.60 H Albumin/Globulin Ratio 0.86 Lipase 27 Hemoglobin A1c 6.4 H Triglycerides Level 102 Cholesterol Level 185 LDL Cholesterol, Calculated 95 HDL Cholesterol 70 Cholesterol/HDL Ratio 2.6 Creatine Kinase 1277 H Creatine Kinase Index 11.0 Creatinine Kinase MB (Mass) 141.00 H Test 07/09/17 05:30 White Blood Count 19.3 H Red Blood Count 3.99 L Hemoglobin 11.6 L Hematocrit 34.0 L Mean Corpuscular Volume 85.2 Mean Corpuscular Hemoglobin 29.1 Mean Corpuscular Hemoglobin Concent 34.1 Red Cell Distribution Width 15.5 H Platelet Count 131 L Mean Platelet Volume 11.3 H Neutrophils % 82.3 H Lymphocytes % 8.9 L Monocytes % 5.1 Eosinophils % 0.1 Basophils % 0.3 Nucleated Red Blood Cells % 0.0 Neutrophils # (Manual) 15.9 H Lymphocytes # 1.7 Monocytes # 1.0 H Eosinophils # 0.0 Basophils # 0.1 Nucleated Red Blood Cells # 0.0 Prothrombin Time 16.2 H Prothrombin Time Ratio 1.3 INR International Normalized Ratio 1.29 Activated Partial Thromboplast Time 46.9 H Sodium Level 136 Potassium Level 4.2 Chloride Level 104 Carbon Dioxide Level 20 L Anion Gap 16 Blood Urea Nitrogen 29 H Creatinine 2.41 H Glucose Level 120 Lactic Acid Level 1.8 Calcium Level 8.3 L Phosphorus Level 3.6 Magnesium Level 1.7 Creatine Kinase 1190 H Creatine Kinase Index 10.2 Creatinine Kinase MB (Mass) 121.00 H Troponin I 44.700 *H Triglycerides Level 79 Cholesterol Level 161 LDL Cholesterol, Calculated 76 HDL Cholesterol 69 Cholesterol/HDL Ratio 2.3 Medications Medications Current Medications Ondansetron HCl (Zofran Tab) 4 mg Q6H PRN PO NAUSEA AND/OR VOMITING; Start at 19:30 Ondansetron HCl (Zofran Inj) 4 mg Q6H PRN IV NAUSEA AND/OR VOMITING; Start at 19:30 Metoclopramide HCl (Reglan) 10 mg Q6H PRN IV NAUSEA AND/OR VOMITING; Start at 19:30 Acetaminophen (Tylenol Liquid) 650 mg Q6H PRN PO PAIN LEVEL 1-3 OR FEVER; Start 07/08/17 at 19:30 Acetaminophen/ Hydrocodone Bitart ([place] (5/325)) 1 tab Q6H PRN PO PAIN LEVEL 4 -6; Start 07/08/17 at 19:30 Amlodipine Besylate (Norvasc) 2.5 mg QAM PO Last administered on 07/09/17 12: 37; Admin Dose 2.5 MG; Start 07/09/17 at 09:00 Aspirin (Halfprin) 81 mg DAILY PO Last administered on 07/09/17 12:37; Admin Dose 81 MG; Start 07/09/17 at 09:00 Doxazosin Mesylate (Cardura) 1 mg HS PO Last administered on 07/08/17 22:09; Admin Dose 1 MG; Start 07/08/17 at 21:00 Miscellaneous Information 8 mg 8 mg DAILY PO ; Start 07/09/17 at 09:00; Status UNV Sodium Chloride (NS) 1,000 ml @ 75 mls/hr [id number] IV Last administered on 07/09 00:37; Admin Dose 75 MLS/HR; Start 07/08/17 at 23:30 Tamsulosin HCl (Flomax) 0.4 mg DAILY@21 PO ; Start 07/09/17 at 21:00 Miscellaneous Information (*Order Clarification Bulletin) MEDICATION REQUIRES CLARIFICATI... TID@08,16,20 XX Last administered on 07/09/17 11:29; Admin Dose 1 EA; Start 07/09/17 at 16:00 Isosorbide Mononitrate (Imdur) 30 mg DAILY PO ; Start 07/10/17 at 09:00 Enoxaparin Sodium (Lovenox) 85 mg Q24H SC ; Start 07/09/17 at 19:30 Clopidogrel Bisulfate (plaVIX) 75 mg DAILY PO ; Start 07/10/17 at 09:00 Atorvastatin Calcium (Lipitor) 80 mg DAILY@21 PO ; Start 07/09/17 at 21:00 RICKIE HOFF MD Jul 09, 2017 13:38
--- NOTE | 2017-07-09 14:31 | RADRPT ---
PROCEDURE: Renal US. CLINICAL INDICATION: Renal dysfunction. TECHNIQUE: Multiple sonographic images of the kidneys and urinary bladder were obtained. The imag es were reviewed on a PACS workstation. COMPARISON: No prior studies are available for comparison. FINDINGS: The right kidney measures 12.4 x 3.8 x 6.0 cm. The left kidney measures 9.9 x 6.0 x 5.4 cm. There is no solid renal mass. There is a benign cyst in the mid right kidney measuring 8.1 x 5.8 cm and a benign cyst superiorly in the right kidney measuring 8.4 x 7.3 cm. There is a benign cyst in the mid left kidney measuring 1.57. There is no hydronephrosis. There is no renal calculus. Renal parenchymal thickness is normal bilaterally. Both kidneys are hyperechoic consistent with medical renal disease. The perirenal regions are normal with no fluid collection or mass. There is debris in the urinary bladder appear there is no bladder mass or calculus demonstrated. IMPRESSION: 1. Benign bilateral renal cysts. 2. Bilateral hyperechoic kidneys consistent with medical renal disease. 3. No hydronephrosis. 4. Debris in the bladder. 5. Otherwise unremarkable study. RPTAT: QQ .Bravo Oviedo MD, Date Time Electronically viewed and signed by .Bravo Oviedo MD, on 07/09/2017 14:30 .R/
[2017-07-09 16:45] LABS: CK-MB 84.7 ng/ml (0.0-2.4); TROPONIN-I 33.7 ng/ml (0.00-0.12)
[2017-07-09] MEDS ORDERED: DORZ10DR6 BOTH EYES (17:49)
[2017-07-09] MEDS ORDERED: LATA2.5D2 BOTH EYES (17:49)
[2017-07-09] MEDS: CALCIUM CARBONATE 500 MG CHEW TAB PO SCH (18:50)
[2017-07-09 20:08] LABS: ADD UMIC YES; UR ASCORBIC ACID NEGATIVE (NEGATIVE); UR BACTERIA MANY /HPF (NONE SEEN); UR BILIRUBIN (Dip) NEGATIVE (NEGATIVE); UR BLOOD (Dip) 1+ mg/dL (NEGATIVE); UR CLARITY TURBID (CLEAR); UR COLOR YELLOW (YELLOW); UR GLUCOSE (Dip) NEGATIVE (NEGATIVE); UR KETONES (Dip) NEGATIVE (NEGATIVE); UR LEUKOCYTE ESTERASE (Dip) 3+ Leu/ul (NEGATIVE); UR NITRITE (Dip) NEGATIVE (NEGATIVE); UR RBC 6 /HPF (0-5); UR SPECIFIC GRAVITY (Dip) 1.008 (1.003-1.030); UR SQUAMOUS EPITHELIAL CELL FEW /HPF (FEW); UR TOTAL PROTEIN (Dip) 2+ mg/dl (NEGATIVE); UR UROBILINOGEN (Dip) NEGATIVE (NEGATIVE)
[2017-07-09] MEDS ORDERED: DORZOLAMIDE/TIMOLOL 10 ML OPH BOTH EYES SCH (21:00)
[2017-07-09] MEDS ORDERED: ATORVASTATIN 80 MG TAB PO SCH (21:00)
[2017-07-09] MEDS ORDERED: TAMSULOSIN (SR) 0.4 MG CAP PO SCH (21:00)
[2017-07-09] MEDS ORDERED: LATANOPROST 0.005% 2.5 ML OPH BOTH EYES SCH (21:00)
[2017-07-09] MEDS ORDERED: ATORVASTATIN 20 MG TAB PO SCH (21:00)
[2017-07-09] MEDS: DOXAZOSIN 2 MG TAB PO SCH (21:11)
[2017-07-09] MEDS: ENOXAPARIN 100 MG/ML SYG SC SCH (21:22)
[2017-07-10] VITALS (12 sets, daily range): BP systolic 111–150; BP diastolic 60–81; PULSE 43–72; RESP 16–20
--- NOTE | 2017-07-10 04:25 | CONS ---
DATE OF ADMISSION: 07/08/2017 DATE OF CONSULTATION: 07/09/2017 HISTORY OF PRESENT ILLNESS: Dear Dr. Perry, thank you for asking me to participate in the care of this 89-year-old male with history of BPH, hypertension, who has been followed in the [facility]. Patient has been brought to the emergency room with an episode of chest pain and lab work has shown evaluated troponin and creatinine. Nephrology consultation is, therefore, kindly requested. Hospital record further reviewed. At the time of admission, patient was already seen by the security officer supervisor and had an electrocardiogram that shows a non-STEMI and ejection fraction is estimated at ?35.4 percent. Patient has mild aortic valve regurgitation and moderate tricuspid regurgitation. A urinalysis is not available. BUN and creatinine elevated to 22/2.18 and subsequently went to 29/2.41. The white count is elevated to 19.3, hematocrit dropped from 39 percent to 34 percent. Patient is making good urine. A bladder scan shows volume of 550 mL. Patient already had a chest x-ray. Renal ultrasound is suggestive of parenchymal dis.. PAST PERSONAL: BPH, HBP FAMILY HISTORY: Significant in that patient is one of 10 siblings and parents did have heart problems. REVIEW OF SYSTEMS: Negative for any head, eye, ear, nose, throat problems, cough, hemoptysis, fever, chills. No acute abdominal pain. Patient denies frequency of urination, although has been on multiple other medications including Flomax. MEDICATION: 1. Flomax. 2. Losartan. 3. Isosorbide. 4. Rapaflo. 5. Cardura. 6. Plavix. 7. Amlodipine. In the hospital, he has already been given heparin and and is now on Lovenox. He has not had any documented hypertensive crisis, mo hematuria or hearing loss, nosebleeds, sore throat. The rest of the past history is otherwise unremarkable. PHYSICAL EXAMINATION: GENERAL APPEARANCE: The patient is a pleasant elderly male, who is remarkably alert, despite his age, and there is no acute distress. VITAL SIGNS: Blood pressure remains low at 122/56, heart rate is 63, temperature is 97, respiration is not labored at 16-18. HEENT: Unremarkable. Eyes: Pale conjunctivae. Sclera not icteric. Nose, oral mucosa, tongue moist. No nasal congestion. NECK: Supple. No jugular venous distension, lymph node, palate enlargement. Trachea is midline. CHEST: Symmetrical. LUNGS: Clear. CARDIAC: Regular rhythm. S1, S2 unremarkable. ABDOMEN: Flat, soft, no masses. I could not hear any bruit. GENITAL: Not examined. EXTREMITIES: No cyanosis, clubbing or edema. SKIN: Unremarkable. No lesions are noted. NEUROLOGIC: He is intact. IMPRESSION: 1. History of hypertension, on amlodipine. 2. Acute myocardial infarction per Dr. Alex. 3. A history of benign prostatic hypertrophy. 4. Rule out underlying chronic kidney disease, may be nephrosclerosis. 5. Obstructive uropathy. PLAN: This pleasant gentleman has already had extensive workup. He is apparently scheduled for a TURP, which he would have benefited from, although at present, this is the least of his problems. A Ac catheter has not been placed in light of underlying acute AL. I would continue to attempt to make him urinate by offering Urinal, etc., especially since he has not had any episode of urinary retention. Whether he needs a consult, I will leave that in your good hands. Renal-hlal once the obstructive component is eliminated, we can determine the baseline status of his chronic kidney disease. Short of that, we will have to manage him as conservatively as possible. PSA has returned normal at this time, and I will follow this patient's clinical course along with you while IV Fluids are being administered to alleviate any pre-renal Azotemia. LASTLY, IF THE PT NEEDS ANY RADIOGRAPHIC INTERVENTION SUCH C. ANGIO, PT MAY BE A CANDIDATE FOR MUCOMIST THERAPY IN ORDER TO PREVENT CONTRAST iNDUCED NEPHROPATHY. Please allow me to thank you once again. Dictated By: Akshat Muller MD /[email or web address]/ken /Document#: [id number] RAISA
[2017-07-10] MEDS ORDERED: RAPAFLO PO SCH (07:55)
[2017-07-10] MEDS: CALCIUM CARBONATE 500 MG CHEW TAB PO SCH ×3 (08:19→17:58)
[2017-07-10] MEDS: AMLODIPINE 2.5 MG TAB PO SCH (08:20)
[2017-07-10] MEDS: ASPIRIN (EC) 81 MG TAB PO SCH (08:20)
[2017-07-10] MEDS: SOD CHLORIDE 0.9% 1,000 ML IV SCH ×2 (08:22→15:56)
[2017-07-10] MEDS ORDERED: CLOPIDOGREL 75 MG TAB PO SCH (09:00)
[2017-07-10] MEDS ORDERED: ISOSORBIDE MONONITRATE(SR)30 MG TAB PO SCH (09:00)
[2017-07-10 10:17] LABS: BASOPHILS % 0.3 % (0.0-2.0); EOSINOPHILS # 0.3 10^3/ul (0.0-0.5); EOSINOPHILS % 2.9 % (0.0-7.0); HEMATOCRIT 35.5 % (42.0-52.0); HEMOGLOBIN 11.7 g/dl (14.0-18.0); LYMPHOCYTES # 1.3 10^3/ul (0.8-2.9); LYMPHOCYTES % 12.7 % (15.0-51.0); MEAN CORPUSCULAR HEMOGLOBIN 28.7 pg (29.0-33.0); MEAN PLATELET VOLUME 11.6 fl (7.4-10.4); MONOCYTE # 0.7 10^3/ul (0.3-0.9); MONOCYTES % 6.6 % (0.0-11.0); NEUTROPHILS % 75.3 % (39.0-77.0); PLATELET COUNT 138 10^3/UL (140-415); RED BLOOD COUNT 4.08 10^6/ul (4.70-6.10); RED CELL DISTRIBUTION WIDTH 15.9 % (11.5-14.5); WHITE BLOOD COUNT 10.5 10^3/ul (4.8-10.8)
[2017-07-10 10:26] LABS: CALCIUM 8.6 mg/dl (8.4-10.2); CREATININE 1.82 mg/dl (0.61-1.24); POTASSIUM 4.2 mmol/L (3.5-5.1)
[2017-07-10 10:36] LABS: CK-MB 31.6 ng/ml (0.0-2.4); TROPONIN-I 18.6 ng/ml (0.00-0.12)
--- NOTE | 2017-07-10 11:54 | PN ---
Date/Time of Note Date/Time of Note DATE: 07/10/17 TIME: 11:50 Assessment/Plan VTE Prophylaxis VTE Prophylaxis Intervention: heparin Lines/Catheters [facility] Peripheral IV Urinary Cath still in place: No Assessment/Plan Problems: (1) Hyperlipidemia Status: Chronic Comment: Continue statin therapy. Qualifiers: Hyperlipidemia type: pure hypercholesterolemia Qualified Code: E78.00 - Pure hypercholesterolemia (2) Chronic kidney disease (CKD) Status: Chronic Comment: He has acute on chronic kidney injury. Part of this may well be due to an obstructive uropathy. He was scheduled as an outpatient for prostate surgery. Because the elevated post void residual he will be receiving in and out cath for the time being Qualifiers: Chronic kidney disease stage: stage 3 (moderate) Qualified Code: N18.3 - Chronic kidney disease (CKD), stage 3 (moderate) (3) Benign prostatic hypertrophy (BPH) with incomplete bladder emptying Status: Chronic Comment: Patient was on interesting regimen which included doxazosin at low- dose Rapaflo at full dose and tamsulosin a full dose. We will clean this up add in the 5 alpha reductase inhibitor pending the surgical procedure as an outpatient which is already been evaluated (4) Essential hypertension Status: Chronic Comment: Titrate up on the doxazosin and get rid of the amlodipine (5) Aortic stenosis Status: Chronic Comment: This is mild to moderate. Please see the notes from the local combination truck driver. Qualifiers: Cardiac valve disease etiology: nonrheumatic Qualified Code: I35.0 - Nonrheumatic aortic valve stenosis (6) Coronary artery disease Status: Chronic Comment: Came in with an NSTEMI. cardiology is evaluating Qualifiers: Coronary Disease-Associated Artery/Lesion type: [place] artery [place] vs. 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 (9) Acute kidney injury Status: Acute Comment: Follow along carefully and relieve the obstruction (10) Non-STEMI (non-ST elevated myocardial infarction) Status: Acute Comment: As per cardiology Subjective 24 Hr Interval Summary Free Text/Dictation Charming and vibrant gentleman reports no chest pain no shortness of breath no nausea or vomiting. Constitutional: no complaints Respiratory: no complaints Cardiovascular: no complaints Gastrointestinal: no complaints Genitourinary: other (Hesitancy and frequency) Musculoskeletal: no complaints Exam/Review of Systems Vital Signs Vitals Vital Signs Date Time Temp Pulse Resp B/P Pulse Ox O2 Delivery O2 Flow Rate FiO2 07/10/17 11:14 97.7 78 18 120/64 97 07/10/17 04:00 Room Air 07/09/17 21:37 1.0 Intake and Output 07/09/17 07/09/17 07/10/17 15:00 23:00 07:00 Intake Total 1340 ml 940 ml 900 ml Output Total 150 ml 650 ml Balance 1190 ml 290 ml 900 ml Exam Constitutional: alert, oriented Neck: non-tender, supple Respiratory: clear to auscultation, normal air movement Cardiovascular: irregular rhythm, murmurs/extra sounds (Left upper sternal border crescendo decrescendo murmur consistent with aortic stenosis), nl pulses Gastrointestinal: nl liver, spleen, non-tender, soft Results Result Diagram: 07/10/1720 07/10/17 0920 Results 24 hrs Laboratory Tests Test 07/09/17 15:24 07/09/17 15:42 07/09/17 17:51 07/10/17 09:20 Phosphorus Level 2.9 Creatine Kinase 866 H 389 #H Creatine Kinase Index 9.8 8.1 Creatinine Kinase MB (Mass) 84.70 H 31.60 H Troponin I 33.700 *H 18.600 *H Prostate Specific Antigen 0.8 Urine Osmolality 287 Urine Color YELLOW Urine Clarity TURBID A Urine pH 6.0 Urine Specific [place] 1.008 Urine Ketones NEGATIVE Urine Nitrite NEGATIVE Urine Bilirubin NEGATIVE Urine Urobilinogen NEGATIVE Urine Leukocyte Esterase 3+ H Urine Microscopic RBC 6 H Urine Microscopic WBC > 182 H Urine Squamous Epithelial Cells FEW Urine Bacteria MANY A Urine Hemoglobin 1+ H Urine Glucose NEGATIVE Urine Total Protein 2+ H White Blood Count 10.5 # Red Blood Count 4.08 L Hemoglobin 11.7 L Hematocrit 35.5 L Mean Corpuscular Volume 87.0 Mean Corpuscular Hemoglobin 28.7 L Mean Corpuscular Hemoglobin Concent 33.0 Red Cell Distribution Width 15.9 H Platelet Count 138 L Mean Platelet Volume 11.6 H Neutrophils % 75.3 Lymphocytes % 12.7 L Monocytes % 6.6 Eosinophils % 2.9 Basophils % 0.3 Nucleated Red Blood Cells % 0.0 Neutrophils # (Manual) 7.9 H Lymphocytes # 1.3 Monocytes # 0.7 Eosinophils # 0.3 Basophils # 0.0 Nucleated Red Blood Cells # 0.0 Sodium Level 138 Potassium Level 4.2 Chloride Level 108 Carbon Dioxide Level 21 Anion Gap 13 Blood Urea Nitrogen 30 H Creatinine 1.82 H Glucose Level 111 Calcium Level 8.6 Medications Medications Current Medications Ondansetron HCl (Zofran Tab) 4 mg Q6H PRN PO NAUSEA AND/OR VOMITING; Start at 19:30 Ondansetron HCl (Zofran Inj) 4 mg Q6H PRN IV NAUSEA AND/OR VOMITING; Start at 19:30 Metoclopramide HCl (Reglan) 10 mg Q6H PRN IV NAUSEA AND/OR VOMITING; Start at 19:30 Acetaminophen (Tylenol Liquid) 650 mg Q6H PRN PO PAIN LEVEL 1-3 OR FEVER; Start 07/08/17 at 19:30 Acetaminophen/ Hydrocodone Bitart ([place] (5/325)) 1 tab Q6H PRN PO PAIN LEVEL 4 -6; Start 07/08/17 at 19:30 Aspirin 81 mg 81 mg DAILY PO Last administered on 07/10/17 08:20; Admin Dose 81 MG; Start 07/09/17 at 09:00 Sodium Chloride (NS) 1,000 ml @ 75 mls/hr [id number] IV Last administered on 07/10 08:22; Admin Dose 75 MLS/HR; Start 07/08/17 at 23:30 Isosorbide Mononitrate (Imdur) 30 mg DAILY PO Last administered on 07/10/17 08 :20; Admin Dose 30 MG; Start 07/10/17 at 09:00 Enoxaparin Sodium (Lovenox) 85 mg Q24H SC Last administered on 07/09/17 21:22 ; Admin Dose 85 MG; Start 07/09/17 at 19:30 Clopidogrel Bisulfate (plaVIX) 75 mg DAILY PO Last administered on 8/26/17at 08 :20; Admin Dose 75 MG; Start 07/10/17 at 09:00 Atorvastatin Calcium (Lipitor) 80 mg DAILY@21 PO Last administered on 21:11; Admin Dose 80 MG; Start 07/09/17 at 21:00 Dorzolamide/ Timolol (Cosopt) 1 drop QHS BOTH EYES Last administered on 21:08; Admin Dose 1 DROP; Start 07/09/17 at 21:00 Latanoprost (Xalatan) 1 drop QHS BOTH EYES Last administered on 07/09/17 21:14 ; Admin Dose 1 DROP; Start 07/09/17 at 21:00 Miscellaneous Information Patients own medication are curren... BID@10,16 XX Last administered on 07/10/17 08:20; Admin Dose 1 EA; Start 07/10/17 at 10:00 Doxazosin Mesylate (Cardura) 4 mg HS PO ; Start 07/10/17 at 21:00 JOSIE RIVERA MD Jul 10, 2017 11:54
[2017-07-10] MEDS ORDERED: FINASTERIDE 5 MG TAB PO SCH (12:00)
--- NOTE | 2017-07-10 12:22 | CONS ---
Date/Time of Note Date/Time of Note DATE: 07/10/17 TIME: 12:19 Assessment/Plan Assessment/Plan Additional Assessment/Plan 1. [id number] myocardial infarction - per Dr. Alex, [facility] scheduled or Wednesday.Will hold lovenox . NO CP, able to ambulate. 3. A. Fib - rate controlled now. 3. Episodes of bradycardia- rate controlled now. Stable - will monitor now. 4. Hypertension- better 5. Renal failure, acute on chronic- avoid nephrotoxic meds. 6. Dyslipidemia. 7. Anemia- H/H satbkle, no bleeding now. 8. Thrombocytopenia. 9. Leukocytosis. Consultation Date/Type/Reason Admit Date/Time Jul 08, 2017 at 19:10 Initial Consult Date 24 HR Interval Summary Free Text/Dictation [facility] scheduled for Wednesday.Will hold lovenox am.No CP now. ROS: No fever, no chills, no nausea, no vomiting, no diarrhea/constipation No recent weight changes No chest pain, no PND, no orthopnea No dizziness, blurred vision No thirst, no heat or cold intolerance Exam/Review of Systems Vital Signs Vitals Vital Signs Date Time Temp Pulse Resp B/P Pulse Ox O2 Delivery O2 Flow Rate FiO2 07/10/17 12:05 65 07/10/17 11:14 97.7 18 120/64 97 07/10/17 04:00 Room Air 07/09/17 21:37 1.0 Intake and Output 07/09/17 07/09/17 07/10/17 15:00 23:00 07:00 Intake Total 1340 ml 940 ml 900 ml Output Total 150 ml 650 ml Balance 1190 ml 290 ml 900 ml Exam General: WN/WD/NAD, AOx 3 HEENT: Unicetric/atraumatic/EOMI (follow commands) NECK: JVD elevated, no thyromegaly Lymph: no lymphadenopathy HEART: Ir Irregular with no S3, II/ systolic murmur at apex LUNGS: Coarse sounds ABD: soft, NT, ND, +BS : Intact Neuro: non focal SKIN: chronic changes EXT: trace edema Results Result Diagram: 07/10/17 0920 07/10/17 0920 Results 24 hrs Laboratory Tests Test 07/09/17 15:24 07/09/17 15:42 07/09/17 17:51 07/10/17 09:20 Phosphorus Level 2.9 Creatine Kinase 866 H 389 #H Creatine Kinase Index 9.8 8.1 Creatinine Kinase MB (Mass) 84.70 H 31.60 H Troponin I 33.700 *H 18.600 *H Prostate Specific Antigen 0.8 Urine Osmolality 287 Urine Color YELLOW Urine Clarity TURBID A Urine pH 6.0 Urine Specific [place] 1.008 Urine Ketones NEGATIVE Urine Nitrite NEGATIVE Urine Bilirubin NEGATIVE Urine Urobilinogen NEGATIVE Urine Leukocyte Esterase 3+ H Urine Microscopic RBC 6 H Urine Microscopic WBC > 182 H Urine Squamous Epithelial Cells FEW Urine Bacteria MANY A Urine Hemoglobin 1+ H Urine Glucose NEGATIVE Urine Total Protein 2+ H White Blood Count 10.5 # Red Blood Count 4.08 L Hemoglobin 11.7 L Hematocrit 35.5 L Mean Corpuscular Volume 87.0 Mean Corpuscular Hemoglobin 28.7 L Mean Corpuscular Hemoglobin Concent 33.0 Red Cell Distribution Width 15.9 H Platelet Count 138 L Mean Platelet Volume 11.6 H Neutrophils % 75.3 Lymphocytes % 12.7 L Monocytes % 6.6 Eosinophils % 2.9 Basophils % 0.3 Nucleated Red Blood Cells % 0.0 Neutrophils # (Manual) 7.9 H Lymphocytes # 1.3 Monocytes # 0.7 Eosinophils # 0.3 Basophils # 0.0 Nucleated Red Blood Cells # 0.0 Sodium Level 138 Potassium Level 4.2 Chloride Level 108 Carbon Dioxide Level 21 Anion Gap 13 Blood Urea Nitrogen 30 H Creatinine 1.82 H Glucose Level 111 Calcium Level 8.6 Medications Medications Current Medications Ondansetron HCl (Zofran Tab) 4 mg Q6H PRN PO NAUSEA AND/OR VOMITING; Start at 19:30 Ondansetron HCl (Zofran Inj) 4 mg Q6H PRN IV NAUSEA AND/OR VOMITING; Start at 19:30 Metoclopramide HCl (Reglan) 10 mg Q6H PRN IV NAUSEA AND/OR VOMITING; Start at 19:30 Acetaminophen (Tylenol Liquid) 650 mg Q6H PRN PO PAIN LEVEL 1-3 OR FEVER; Start 07/08/17 at 19:30 Acetaminophen/ Hydrocodone Bitart ([place] (5/325)) 1 tab Q6H PRN PO PAIN LEVEL 4 -6; Start 07/08/17 at 19:30 Aspirin 81 mg 81 mg DAILY PO Last administered on 07/10/17 08:20; Admin Dose 81 MG; Start 07/09/17 at 09:00 Sodium Chloride (NS) 1,000 ml @ 75 mls/hr [id number] IV Last administered on 07/10 08:22; Admin Dose 75 MLS/HR; Start 07/08/17 at 23:30 Isosorbide Mononitrate (Imdur) 30 mg DAILY PO Last administered on 07/10/17 08 :20; Admin Dose 30 MG; Start 07/10/17 at 09:00 Enoxaparin Sodium (Lovenox) 85 mg Q24H SC Last administered on 07/09/17 21:22 ; Admin Dose 85 MG; Start 07/09/17 at 19:30 Clopidogrel Bisulfate (plaVIX) 75 mg DAILY PO Last administered on 07/10/17 08 :20; Admin Dose 75 MG; Start 07/10/17 at 09:00 Atorvastatin Calcium (Lipitor) 80 mg DAILY@21 PO Last administered on 21:11; Admin Dose 80 MG; Start 07/09/17 at 21:00 Dorzolamide/ Timolol (Cosopt) 1 drop QHS BOTH EYES Last administered on 21:08; Admin Dose 1 DROP; Start 07/09/17 at 21:00 Latanoprost (Xalatan) 1 drop QHS BOTH EYES Last administered on 07/09/17 21:14 ; Admin Dose 1 DROP; Start 07/09/17 at 21:00 Miscellaneous Information Patients own medication are curren... BID@10,16 XX Last administered on 07/10/17 08:20; Admin Dose 1 EA; Start 07/10/17 at 10:00 Doxazosin Mesylate (Cardura) 4 mg HS PO ; Start 07/10/17 at 21:00 Finasteride (Proscar) 5 mg DAILY PO ; Start 07/10/17 at 12:00 MARGO YAN MD Jul 10, 2017 12:22
--- NOTE | 2017-07-10 14:39 | CONS ---
Date/Time of Note Date/Time of Note DATE: 07/10/17 TIME: 14:30 Assessment/Plan Assessment/Plan Chief Complaint/Hosp Course pt is a pleasant afro-[place] gentleman Problems: (1) Obstructive uropathy Comment: high residual, may be reason for pt to have UTI (2) Acute kidney injury Status: Acute Comment: Improving, may have ckd baseline (3) Leukocytosis Status: Acute Comment: Begin Levaquin for UTI Qualifiers: Leukocytosis type: lymphocytosis Qualified Code: D72.820 - Lymphocytosis (4) Benign prostatic hypertrophy (BPH) with incomplete bladder emptying Status: Chronic (5) Chronic kidney disease (CKD) Status: Chronic Comment: nephrosclerosis Qualifiers: Chronic kidney disease stage: stage 3 (moderate) Qualified Code: N18.3 - Chronic kidney disease (CKD), stage 3 (moderate) (6) Coronary artery disease Status: Chronic Comment: AC NH per cardiology Qualifiers: Coronary Disease-Associated Artery/Lesion type: [place] artery [place] vs. transplanted heart: [place] heart Associated angina: with unstable angina Qualified Code: I25.110 - Coronary artery disease involving [place] coronary artery of [place] heart with unstable angina pectoris Additional Assessment/Plan Awaiting cardiiac plans and proceed with starting pt onmucomist Consultation Date/Type/Reason Admit Date/Time Jul 08, 2017 at 19:10 Initial Consult Date 07/09/17 Reason for Consultation SHAI 24 HR Interval Summary Free Text/Dictation Pt is in good spirits Exam/Review of Systems Vital Signs Vitals Vital Signs Date Time Temp Pulse Resp B/P Pulse Ox O2 Delivery O2 Flow Rate FiO2 07/10/17 12:05 65 07/10/17 11:14 97.7 18 120/64 97 07/10/17 04:00 Room Air 07/09/17 21:37 1.0 Intake and Output 07/09/17 07/09/17 07/10/17 15:00 23:00 07:00 Intake Total 1340 ml 940 ml 900 ml Output Total 150 ml 650 ml Balance 1190 ml 290 ml 900 ml Exam No c/o chest pain, sob Constitutional: alert, oriented, well developed Psych: nl mood/affect, no complaints Head: atraumatic, normocephalic Eyes: EOMI, PERRL, nl conjunctiva, nl lids, nl sclera ENMT: nl external ears & nose, nl lips & teeth, nl nasal mucosa & septum Neck: non-tender, supple Respiratory: clear to auscultation, normal air movement Cardiovascular: nl pulses, regular rate and rhythm Gastrointestinal: nl liver, spleen, non-tender, soft Genitourinary - Male: other (pt voiding tho definitely has drainage issues) Musculoskeletal: nl extremities to inspection, nl gait and stance Extremities: normal pulses Neurological: CABLE DISPATCHER II-XII intact, nl mental status, nl speech, nl strength Skin: nl turgor, No rash or lesions Lymph: nl lymph nodes Results SCreat is a little better, WBC is down Urine Culture Gm- org. Result Diagram: 07/10/1791907/10/17919 Results 24 hrs Laboratory Tests Test 07/09/17 15:24 07/09/17 15:42 07/09/17 17:51 07/10/17 09:20 Phosphorus Level 2.9 Creatine Kinase 866 H 389 #H Creatine Kinase Index 9.8 8.1 Creatinine Kinase MB (Mass) 84.70 H 31.60 H Troponin I 33.700 *H 18.600 *H Prostate Specific Antigen 0.8 Urine Osmolality 287 Urine Color YELLOW Urine Clarity TURBID A Urine pH 6.0 Urine Specific [place] 1.008 Urine Ketones NEGATIVE Urine Nitrite NEGATIVE Urine Bilirubin NEGATIVE Urine Urobilinogen NEGATIVE Urine Leukocyte Esterase 3+ H Urine Microscopic RBC 6 H Urine Microscopic WBC > 182 H Urine Squamous Epithelial Cells FEW Urine Bacteria MANY A Urine Hemoglobin 1+ H Urine Glucose NEGATIVE Urine Total Protein 2+ H White Blood Count 10.5 # Red Blood Count 4.08 L Hemoglobin 11.7 L Hematocrit 35.5 L Mean Corpuscular Volume 87.0 Mean Corpuscular Hemoglobin 28.7 L Mean Corpuscular Hemoglobin Concent 33.0 Red Cell Distribution Width 15.9 H Platelet Count 138 L Mean Platelet Volume 11.6 H Neutrophils % 75.3 Lymphocytes % 12.7 L Monocytes % 6.6 Eosinophils % 2.9 Basophils % 0.3 Nucleated Red Blood Cells % 0.0 Neutrophils # (Manual) 7.9 H Lymphocytes # 1.3 Monocytes # 0.7 Eosinophils # 0.3 Basophils # 0.0 Nucleated Red Blood Cells # 0.0 Sodium Level 138 Potassium Level 4.2 Chloride Level 108 Carbon Dioxide Level 21 Anion Gap 13 Blood Urea Nitrogen 30 H Creatinine 1.82 H Glucose Level 111 Calcium Level 8.6 Medications Medications Current Medications Ondansetron HCl (Zofran Tab) 4 mg Q6H PRN PO NAUSEA AND/OR VOMITING; Start at 19:30 Ondansetron HCl (Zofran Inj) 4 mg Q6H PRN IV NAUSEA AND/OR VOMITING; Start at 19:30 Metoclopramide HCl (Reglan) 10 mg Q6H PRN IV NAUSEA AND/OR VOMITING; Start at 19:30 Acetaminophen (Tylenol Liquid) 650 mg Q6H PRN PO PAIN LEVEL 1-3 OR FEVER; Start 07/08/17 at 19:30 Acetaminophen/ Hydrocodone Bitart ([place] (5/325)) 1 tab Q6H PRN PO PAIN LEVEL 4 -6; Start 07/08/17 at 19:30 Aspirin 81 mg 81 mg DAILY PO Last administered on 07/10/17 08:20; Admin Dose 81 MG; Start 07/09/17 at 09:00 Sodium Chloride (NS) 1,000 ml @ 75 mls/hr [id number] IV Last administered on 07/10 08:22; Admin Dose 75 MLS/HR; Start 07/08/17 at 23:30 Isosorbide Mononitrate (Imdur) 30 mg DAILY PO Last administered on 07/10/17 08 :20; Admin Dose 30 MG; Start 07/10/17 at 09:00 Enoxaparin Sodium (Lovenox) 85 mg Q24H SC Last administered on 07/09/17 21:22 ; Admin Dose 85 MG; Start 07/09/17 at 19:30 Clopidogrel Bisulfate (plaVIX) 75 mg DAILY PO Last administered on 07/10/17 08 :20; Admin Dose 75 MG; Start 07/10/17 at 09:00 Atorvastatin Calcium (Lipitor) 80 mg DAILY@21 PO Last administered on 21:11; Admin Dose 80 MG; Start 07/09/17 at 21:00 Dorzolamide/ Timolol (Cosopt) 1 drop QHS BOTH EYES Last administered on 21:08; Admin Dose 1 DROP; Start 07/09/17 at 21:00 Latanoprost (Xalatan) 1 drop QHS BOTH EYES Last administered on 07/09/17 21:14 ; Admin Dose 1 DROP; Start 07/09/17 at 21:00 Miscellaneous Information Patients own medication are curren... BID@10,16 XX Last administered on 07/10/17 08:20; Admin Dose 1 EA; Start 07/10/17 at 10:00 Doxazosin Mesylate (Cardura) 4 mg HS PO ; Start 07/10/17 at 21:00 Finasteride (Proscar) 5 mg DAILY PO Last administered on 07/10/17 13:43; Admin Dose 5 MG; Start 07/10/17 at 12:00 KELVIN PEMBERTON MD Jul 10, 2017 14:39
--- NOTE | 2017-07-10 14:49 | RADRPT ---
Vent Rate: 66 bpm RR Interval: 0 msec MO Interval: 0 msec QRS Duration: 100 msec QT Interval: 476 msec QTC Interval: 499 msec P-R-T Doon: 0 - -26 - 0 degrees Atrial fibrillation Possible Inferior infarct , age undetermined Anterior infarct , age undetermined ST amp; T wave abnormality, consider lateral ischemia or digitalis effect Abnormal ECG No previous tracing available for comparison Electronically Signed By: Jey Snyder [id number]
[2017-07-10] MEDS ORDERED: LEVOFLOXACIN 250MG/D5W (PMX) 50 ML IVPB SCH (16:00)
--- NOTE | 2017-07-10 16:40 | PDOCDIS ---
Discharge Instructions DIAGNOSIS Discharge Diagnosis Nstemi; UTI; BPH WITH OBSTRUCTION; HYPERTENSION; CHF-systolic and diastolic; Aortic stenosis mild-moderate;New onset Atrial fibrillation; Hyperlipidemia CONDITION Patient Condition: Fair HOME CARE INSTRUCTIONS: Special Diet: cardiac FOLLOW UP/APPOINTMENTS Follow-up Plan Transfer as per insurance under [facility] to [facility] for continued care and cardiac angio. OTHER ORDERS: Other Orders: JOSIE Bonilla MD Jul 10, 2017 16:40
--- NOTE | 2017-07-10 16:53 | DS ---
Date/Time of Note Date/Time of Note DATE: 07/10/17 TIME: 16:46 Discharge Summary Admission/Discharge Info Admit Date/Time Jul 08, 2017 at 19:10 Discharge Date/Time 07/10/2017 Discharge Diagnosis Nstemi; UTI; BPH WITH OBSTRUCTION; HYPERTENSION; CHF-systolic and diastolic; Aortic stenosis mild-moderate;New onset Atrial fibrillation; Hyperlipidemia Patient Condition: Fair Consults Cardiology; Nephrology Procedures Echocardiogram; EKG; Renal Ultrasound Hx of Present Illness Chief Complaint cough and sob starting this morning; no complaint of cp HPI 89-year-old man with history of hypertension presents short of breath beginning this morning when he woke up. He denies chest pain or palpitations, no recent travel, no fevers or chills, no vomiting or diarrhea. Patient denies dizziness or generalized weakness but states he feels short of breath at rest and when he attempts to walk around the house. states a week ago he had similar symptoms which lasted for part of the day and then resolve spontaneously. He has no history of irregular heartbeat. HISTORY OF PRESENT ILLNESS: Mr. Martinez is a pleasant 89-year- old male with history of hypertension, BPH, chronic kidney disease, dyslipidemia, former tobacco and said he quit times greater than 30 years, who initially awoke with complaints of shortness of breath. Denied chest pain. The patient states that he had been noticing dyspnea on exertion for multiple weeks. The patient subsequently presented to the emergency department here at [facility], and upon arrival, temperature 98.2, blood pressure 95/59, pulse 95, respiratory rate 20, satting 96 percent. Patient's labs revealed a sodium of 136, potassium 3.8, creatinine 2.1, BUN 22. Troponin 34.8. AST 125, ALT 33. LDL 95, HDL 70. Lipase 27. INR 1.0. The patient underwent a chest x-ray, revealed cardiomegaly, atherosclerosis, possible nodules in the right lung apex. Patient's electrocardiogram revealed atrial fibrillation at a rate of 88 with normal axis, intervals, and lateral ST depressions, anteroseptal Q's; in addition, the patient had inferior Q's. The patient subsequently treated with aspirin, Plavix load of 300 and Lovenox 84 mg subcu x1. The patient, thereafter, has been admitted to the ICU, and since admitted to the ICU, patient denies chest pain, and states shortness of breath has improved. Patient's troponin did trend up to 34.8, went to 42.7 and then 44.7 this morning, with CK-MB that went from 141, down to 121. Patient's creatinine has worsened from 2.18 to 2.41. Hospital Course Problems: (1) Hyperlipidemia Status: Chronic Comment: Continue statin therapy. Qualifiers: Hyperlipidemia type: pure hypercholesterolemia Qualified Code: E78.00 - Pure hypercholesterolemia (2) Chronic kidney disease (CKD) Status: Chronic Comment: He has acute on chronic kidney injury. Part of this may well be due to an obstructive uropathy. He was scheduled as an outpatient for prostate surgery. Because the elevated post void residual he will be receiving in and out cath for the time being Qualifiers: Chronic kidney disease stage: stage 3 (moderate) Qualified Code: N18.3 - Chronic kidney disease (CKD), stage 3 (moderate) (3) Benign prostatic hypertrophy (BPH) with incomplete bladder emptying Status: Chronic Comment: Patient was on interesting regimen which included doxazosin at low- dose Rapaflo at full dose and tamsulosin a full dose. We will clean this up add in the 5 alpha reductase inhibitor pending the surgical procedure as an outpatient which is already been evaluated (4) Essential hypertension Status: Chronic Comment: Titrate up on the doxazosin and get rid of the amlodipine (5) Aortic stenosis Status: Chronic Comment: This is mild to moderate. Please see the notes from the electrophysiology scientist. Qualifiers: Cardiac valve disease etiology: nonrheumatic Qualified Code: I35.0 - Nonrheumatic aortic valve stenosis (6) Coronary artery disease Status: Chronic Comment: Came in with an NSTEMI. cardiology is evaluating Qualifiers: Coronary Disease-Associated Artery/Lesion type: [place] artery [place] vs. 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 (9) Acute kidney injury Status: Acute Comment: Follow along carefully and relieve the obstruction (10) Non-STEMI (non-ST elevated myocardial infarction) Status: Acute Comment: As per cardiology Dianelys felton who came in with Acute Cardiac syndrome now stabilized. Based on events Dr. Alex of cardiology (who is contracted with [facility]), planned for semi urgent LHC on . Renal function has improved though has not started N-acetyl cysteine yet, in prep for LHC. Meds for BPH adjusted and patient was pending Laser TURP in future. For anum clean up UTI, (GNR) and proceed. Stable for transfer Home Meds Reported Medications Latanoprost (Latanoprost) 2.5 Ml Drops, 1 DROP BOTH EYES QHS, #1 BOTTLE 07/09/17 Dorzolamide/Timolol* (Dorzolamide/Timolol*) 10 Ml Drops, 1 DROP BOTH EYES QHS, # 1 EA 07/09/17 Silodosin (Rapaflo) 8 Mg Capsule, 8 MG PO DAILY, CAP 07/08/17 Aspirin* (Aspirin* EC) 81 Mg Tablet.dr, 81 MG PO DAILY, TAB 07/08/17 Doxazosin Mesylate* (Doxazosin Mesylate*) 2 Mg Tablet, 1 MG PO HS, TAB 07/08/17 Pravastatin Sodium* (Pravastatin Sodium*) 80 Mg Tablet, 80 MG PO HS, TAB 07/08/17 Losartan Potassium* (Losartan Potassium*) 100 Mg Tablet, 100 MG PO DAILY, TAB 07/08/17 Amlodipine Besylate* (Amlodipine Besylate*) 2.5 Mg Tablet, 2.5 MG PO QAM, #30 TAB 07/08/17 Isosorbide Mononitrate* (Isosorbide Mononitrate*) 30 Mg Tab.er.24h, 30 MG PO BID , TAB 07/08/17 Tamsulosin Hcl* (Tamsulosin Hcl*) Unknown Strength Cap.er.24h, 1 TAB PO HS, CAP 07/08/17 Follow-up Plan Transfer as per insurance in plan to [facility] Primary Care Provider Not On Staff Doctor Time spent on discharge: > 30 minutes Pending Labs Laboratory Tests Test 07/09/17 17:51 07/10/17 09:20 Urine Color YELLOW (YELLOW) Urine Clarity TURBID (CLEAR) Urine pH 6.0 (5.0-9.0) Urine Specific [place] 1.008 (1.003-1.030) Urine Ketones NEGATIVEmg/dL (NEGATIVE) Urine Nitrite NEGATIVEmg/dL (NEGATIVE) Urine Bilirubin NEGATIVEmg/dL (NEGATIVE) Urine Urobilinogen NEGATIVEmg/dL (NEGATIVE) Urine Leukocyte Esterase 3+Gil/ul (NEGATIVE) Urine Microscopic RBC 6/HPF (0-5) Urine Microscopic WBC > 182/HPF (0-5) Urine Squamous Epithelial Cells FEW/HPF (FEW) Urine Bacteria MANY/HPF (NONE SEEN) Urine Hemoglobin 1+mg/dL (NEGATIVE) Urine Glucose NEGATIVEmg/dL (NEGATIVE) Urine Total Protein 2+mg/dl (NEGATIVE) White Blood Count 10.510^3/ul (4.8-10.8) Red Blood Count 4.0810^6/ul (4.70-6.10) Hemoglobin 11.7g/dl (14.0-18.0) Hematocrit 35.5% (42.0-52.0) Mean Corpuscular Volume 87.0fl (82.0-101.0) Mean Corpuscular Hemoglobin 28.7pg (29.0-33.0) Mean Corpuscular Hemoglobin Concent 33.0g/dl (32.0-37.0) Red Cell Distribution Width 15.9% (11.5-14.5) Platelet Count 66797^3/UL (140-415) Mean Platelet Volume 11.6fl (7.4-10.4) Neutrophils % 75.3% (39.0-77.0) Lymphocytes % 12.7% (15.0-51.0) Monocytes % 6.6% (0.0-11.0) Eosinophils % 2.9% (0.0-7.0) Basophils % 0.3% (0.0-2.0) Nucleated Red Blood Cells % 0.0/100WBC (0.0-0.0) Neutrophils # (Manual) 7.910^3/ul (1.7-7.5) Lymphocytes # 1.310^3/ul (0.8-2.9) Monocytes # 0.710^3/ul (0.3-0.9) Eosinophils # 0.310^3/ul (0.0-0.5) Basophils # 0.010^3/ul (0.0-0.1) Nucleated Red Blood Cells # 0.010^3/ul (0.0-0.0) Sodium Level 138mmol/L (135-144) Potassium Level 4.2mmol/L (3.5-5.1) Chloride Level 108mmol/L (97-110) Carbon Dioxide Level 21mmol/L (21-31) Anion Gap 13 (8-16) Blood Urea Nitrogen 30mg/dl (7-20) Creatinine 1.82mg/dl (0.61-1.24) Glucose Level 111mg/dl (70-220) Calcium Level 8.6mg/dl (8.4-10.2) Creatine Kinase 389IU/L (23-200) Creatine Kinase Index 8.1 Creatinine Kinase MB (Mass) 31.60ng/ml (0.0-2.4) Troponin I 18.600ng/ml (0.00-0.12) Microbiology Date/Time Source Procedure Growth Status 07/09/17 17:51 Clean Catch Urine Urine Culture - Preliminary Gram Negative Ryne Resulted JOSIE RIVERA MD Jul 10, 2017 16:53
[2017-07-10] MEDS ORDERED: CEFOTAXIME 2 GM/50 ML (PMX) 50 ML IVPB SCH (18:00)
[2017-07-10] MEDS ORDERED: CEFOTAXIME 2 GM/50 ML (PMX) 50 ML IVPB ONE (18:00)
[2017-07-10] MEDS: ENOXAPARIN 100 MG/ML SYG SC SCH (20:46)
[2017-07-10] MEDS ORDERED: DOXAZOSIN 4 MG TAB PO SCH ×2 (21:00)
== END 2017-07-10 20:40 | disposition short-term general hospital (02) | DRG 280 ==
LOC: E/R 14:58 → ICU 19:10 → EDBD 19:10 → ICU 07-09 00:07 → TEL 07-09 21:30 → UNDODISIN 07-10 20:30
PROVIDERS: ADMIT Internal Medicine; ATTEND Internal Medicine
DX: I21.4 Non-ST elevation (NSTEMI) myocardial infarction (principal); I50.41 Acute combined systolic (congestive) and diastolic (congestive) heart failure; N17.9 Acute kidney failure, unspecified; E86.0 Dehydration; D69.6 Thrombocytopenia, unspecified; R00.1 Bradycardia, unspecified; I36.1 Nonrheumatic tricuspid (valve) insufficiency; I48.91 Unspecified atrial fibrillation; N18.3 Chronic kidney disease, stage 3 (moderate); I13.0 Hypertensive heart and chronic kidney disease with heart failure and stage 1 through stage 4 chronic kidney disease, or unspecified chronic kidney disease; D64.9 Anemia, unspecified; I35.1 Nonrheumatic aortic (valve) insufficiency; E78.5 Hyperlipidemia, unspecified; Z85.46 Personal history of malignant neoplasm of prostate; Z87.891 Personal history of nicotine dependence; N40.1 Benign prostatic hyperplasia with lower urinary tract symptoms; R39.14 Feeling of incomplete bladder emptying
CPT/HCPCS: 36415; 71010; 76775; 80048; 80053; 80061; 81001; 82550; 82553; 83036; 83605; 83690; 83735; 83935; 84100; 84153; 84154; 84443; 84484; 85025; 85610; 85730; 87081; 87086; 93005; 93306; 96372; J0698; J1650; J1956; J7030; J7040